=== PATIENT | male | born 1950 | race Caucasian/White ===

== ENCOUNTER 2019-04-04 06:06 | Inpatient (IN) ==
--- NOTE | 2019-03-04 11:51 | Anesthesiology Consultation ---
Date of Service March 04, 2019 Assessment & Plan (1) Encounter for pre-operative examination: Chart Review Chart Review: Acceptable Risk for Surgery and Patient seen in Pre Admission Testing Teaching & Discussion Instructed NPO after midnight before surgery, except medications with 15 cc of water. Medication instructions provided according to the PAT guidelines. History Surgery Operation Date: 04/04/19 07:00 Proposed Procedures p Left Reverse Shoulder Replacement - Vin Bearden DO Height/Weight Height: 6 ft Weight: 115 kg Allergies Allergy/AdvReac Type Severity Reaction Status Date / Time No Known Allergies Allergy Verified 02/26/19 10:32 Medications Home Medications Medication Instructions Recorded Confirmed Last Taken multivitamin 1 tab PO DAILY 02/26/19 02/26/19 Unknown Past Medical History Medical History Degenerative disc disease Obesity Osteoarthritis Exercise / Class Metabolic Activity II 4-5 Yardwork/Stairs/Walk up hill Past Surgical History Surgical History Fusion of spine LUMBAR H/O knee surgery RT History of appendectomy History of surgery on arm LEFT ELBOW History of tonsillectomy History of tooth extraction Past Anesthesia History No Hx of Anesthesia Complications and No Family Hx of Anesthesia Complications History of PONV No Hx of PONV and No Hx of Motion Sickness Social History Smoking Status: Never smoker Do You Dip or Chew Tobacco: No Hx Alcohol Use: Yes Alcohol type: beer and hard liquor alcohol intake frequency: a few times a month Hx Substance Use: No substance use type: does not use Review of Systems Pt denies any recent chest pain, shortness of breath, palpitations, cough, fever or URI. Physical Exam Vital Signs BP: 132/83 P: 57bpm SPO2: 97% RA T: 97.8 F R: 16 ENMT Mouth: no dental restorations, no chipped teeth and no loose teeth Thyromental Distance: > or= 3.5 Finger Breadths (3.5) Mallampati Class: III Missing three teeth total. 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 Respiratory normal respiratory effort Auscultation: lungs clear to auscultation bilaterally Cardiovascular Rate/Rhythm: regular rate and regular rhythm Heart Sounds: no murmur Extremities: no edema Testing Laboratory Results 03/04/19 12:04 03/04/19 12:04 03/04/19 03/04/19 12:04 12:04 PT 11.0 INR 1.1 APTT 26.2 Blood Type A Positive Antibody Screen NEGATIVE Electrocardiogram Date: 03/04/19 Findings: + SB @ (56) Chest X-Ray Date: 03/04/19 Findings: + NAD
--- NOTE | 2019-03-04 12:26 | XRay Report ---
XR chest Pre-admission PA/Lat CLINICAL HISTORY: 68 years-old Male presenting with preoperative assessment. TECHNIQUE: PA and lateral views of the chest were obtained. COMPARISON: None. FINDINGS: Atherosclerosis of the aortic arch. Cardiac silhouette top normal in size. Lungs and pleural spaces c lear. Degenerative changes of the thoracic spine. Upper abdomen normal. IMPRESSION: 1. No acute cardiopulmonary disease. Electronically signed by: Randolph Lui M.D. 03/04/2019 12:25 PM
[2019-03-04 12:43] LABS: Basophils # (auto) 0.04 K/uL (0-0.2); Basophils % (auto) 0.6 %; Eosinophils % (auto) 1.5 %; Hematocrit (blood only) 43.7 % (42-52); Hemoglobin 15.1 g/dL (14.0-18.0); Immature Granulocytes # (auto) 0.02 K/uL (0.00-0.02); Immature Granulocytes % (auto) 0.3 %; Lymphocytes % (auto) 33.6 %; Mean Corpuscular Hgb Conc 34.6 g/dL (32-36); Mean Corpuscular Volume 87.9 fL (80-100); Mean Platelet Volume 9.3 fL (7.4-10.4); Monocytes # (auto) 0.64 K/uL (0.11-0.59); Monocytes % (auto) 9.4 %; Neutrophils # (auto) 3.74 K/uL (1.4-6.5); Neutrophils % (auto) 54.6 %; Platelet Count 167 K/uL (130-400); RDW Coefficient of Variation 13.9 % (11.5-14.5); RDW Standard Deviation 44.7 fL (36.4-46.3); Red Blood Count 4.97 M/uL (4.7-6.1); White Blood Count 6.84 K/uL (4.8-10.8)
[2019-03-04 13:00] LABS: INR 1.1 (0.9-1.1); Partial Thromboplastin Time 26.2 Seconds (21.0-31.0)
[2019-03-04 15:19] LABS: BUN Creatinine Ratio 12.5 (10-20); Calcium 9.4 mg/dl (8.5-10.1); Creatinine Clr Calc Pharmacy 87.7 ml/min; Est GFR (African American) 82.8; Est GFR (Non-African American) 71.5; Potassium 4.5 mmol/L (3.5-5.1)
--- NOTE | 2019-04-02 07:48 | History & Physical Report ---
Date of Service April 02, 2019 Assessment & Plan (1) Rotator cuff arthropathy of left shoulder: We will proceed with a left reverse shoulder arthroplasty. Postoperatively he will be placed in a sling and kept overnight in the hospital for postoperative medical management. He plans to use outpatient physical therapy in the [facility] upon discharge. Present on Admission?: Yes History of Present Illness Chief Complaint: Rotator cuff arthropathy of the left shoulder Primary Care Provider: NO PCP Anirudh is a pleasant 68-year-old male who injured his shoulder over a year ago. He was lifting a large plantar with soil into the back of his truck and felt a pop and pain in his shoulder. MRI showed a full-thickness tear of the supraspinatus and subscapularis with severe arthritic changes. After failing conservative treatment, he has elected proceed with a left reverse shoulder arthroplasty. Allergies Allergy/AdvReac Type Severity Reaction Status Date / Time No Known Allergies Allergy Verified 02/26/19 10:32 Home Medications Home Medications Medication Instructions Recorded Confirmed Type multivitamin 1 tab PO DAILY 02/26/19 02/26/19 History Past Med/Surg History Medical History Degenerative disc disease Obesity Osteoarthritis Surgical History Fusion of spine LUMBAR H/O knee surgery RT History of appendectomy History of surgery on arm LEFT ELBOW History of tonsillectomy History of tooth extraction Social History Preferred Language: Syriac Communication Ability: Effective Transportation Job Titles Required: No Beliefs That Will Affect Care: None Current Living Situation: Spouse Other Information That Helps Us Care for You: No Feels Safe at Home: Yes Safety Concerns: Feels Safe At This Time Smoking Status: Never smoker Do You Dip or Chew Tobacco: No Second Hand Exposure: No Tobacco Cessation Education Requested by Patient: No Hx Alcohol Use: Yes Alcohol type: beer and hard liquor Hx Substance Use: No Review of Systems All systems reviewed & are unremarkable except as noted in HPI & below Physical Exam Constitutional: WD/WN, vitals as above Eyes: PERRL, conjunctivae normal, anicteric sclerae ENMT: external ear and nose normal, oropharynx normal Neck: trachea midline, no thyromegaly Respiratory: normal respiratory effort Cardiovascular: RRR, no murmur, no edema Gastrointestinal (Abdomen): normal bowel sounds, soft, nontender, no hepatosplenomegaly Musculoskeletal: Physical examination of the left shoulder reveals decreased range of motion and significant weakness. There is tenderness palpation along the anterior glenohumeral joint line. The right upper extremity is neurovascularly intact. Psychiatric: A+Ox3, euthymic affect Results & Data Diagnostic Findings Radiographs of the left shoulder show some signs of osteoarthritis with blunting of the greater tuberosity and some superior migration of the humeral head on the glenoid.
[~2019-04-04 06:06] MED LIST: ACETAMINOPHEN 500 MG TAB PO SCH; CEFAZOLIN 2000MG 2,000 MG/15 ML SYR IV SCH; FAMOTIDINE 20 MG TAB PO SCH; GABAPENTIN 300 MG CAP PO SCH; LR 15ML/HR IV SCH; LR 60ML/HR IV SCH; ROPIVACAINE 0.5% HCL/PF 150 MG, BUPIVACAINE 0.5% MPF 30 ML, EPINEPHrine 30MG/30ML (OR U... INSTIL SCH; TRANEXAMIC ACID 1,000 MG **IV Pre-op IV SCH
[2019-04-04] MEDS ORDERED: TRANEXAMIC ACID 1,000 MG **IV Intra-op IV SCH (06:30)
[2019-04-04] MEDS ORDERED: BUPIVACAINE 0.5 % 5 MG/1 ML PF 10ML VIAL ONE (06:33)
--- NOTE | 2019-04-04 06:58 | History & Physical Bridge Note ---
Date of Service April 04, 2019 History & Physical Bridge Note I have examined the patient, reviewed the History & Physical and in the interval since the performance of the History & Physical I have noted the following changes of clinical significance: no changes noted
[2019-04-04] MEDS ORDERED: ORTHO JOINT ANESTHETIC ONE (07:07)
[2019-04-04] MEDS ORDERED: DEXAMETHASONE SOD INJ 4 MG/ML VIAL ONE (07:11)
[2019-04-04] MEDS ORDERED: GLYCOPYRROLATE 0.2 MG/ML VIAL ONE (07:11)
[2019-04-04] MEDS ORDERED: PROPOFOL IV EMULSION 10 MG/ML 20 ML VIAL IV ONE (07:11)
[2019-04-04] MEDS ORDERED: SUCCINYLCHOLINE CHLORIDE 20 MG/ML 10 ML VIAL ONE (07:11)
[2019-04-04] MEDS ORDERED: ONDANSETRON INJ 2 MG/ML 2 ML VIAL ONE (07:11)
[2019-04-04] MEDS ORDERED: LIDOCAINE HCL 2% 2 ML VIAL/AMP(20MG/ML) INFIL ONE (07:11)
[2019-04-04] MEDS ORDERED: NEOSTIGMINE METHYLSULFATE 5 MG/5 ML SYR ONE (07:11)
[2019-04-04] MEDS ORDERED: ePHEDrine sulfate 50 MG/ML AMP ONE (07:11)
[2019-04-04] MEDS ORDERED: PHENYLEPHRINE HCL 10 MG/ML VIAL ONE (07:11)
[2019-04-04] MEDS ORDERED: fentaNYL citrate 100 MCG/2 ML VIAL ONE (07:12)
[2019-04-04] MEDS ORDERED: MIDAZOLAM HCL 1 MG/ML 2ML VIAL ONE (07:12)
[2019-04-04] MEDS ORDERED: KETOROLAC 30 MG/ML VIAL IV PRN (08:05)
[2019-04-04] MEDS ORDERED: LABETALOL HCL IV 5 MG/ML 20ML IV PRN (08:05)
[2019-04-04] MEDS ORDERED: ATROPINE SULFATE 0.1 MG/ML 10ML SYR IV PRN (08:05)
[2019-04-04] MEDS ORDERED: HYDROmorphone INJ 1 MG/ML SYRINGE IV PRN (08:05)
[2019-04-04] MEDS ORDERED: ONDANSETRON INJ 2 MG/ML 2 ML VIAL IV PRN ×2 (08:05→11:57)
--- NOTE | 2019-04-04 10:17 | Operative Report ---
Post Operative Report Pre & Post Diagnosis Operation Date: 04/04/19 08:30 Pre-Op Diagnosis: LEFT SHOULDER rotator cuff arthropathy Post-Op Diagnosis: LEFT SHOULDER rotator cuff arthropathy Procedure Operation Date: 04/04/19 08:30 Actual Procedures p Left Reverse Shoulder Replacement(Left) - Vin Bearden DO Surgeon Vin Bearden DO Landscaping Supervisor Vin Bell PAC Estimated Blood Loss 200 Findings Consistent with Post-Op Diagnosis Specimens Left humeral head Complications none Disposition Disposition: Recovery Room Indications Anirudh is a pleasant 68-year-old male who injured his left shoulder about a year ago. MRI showed a large rotator cuff tear and severe osteoarthritis. After failing conservative treatment, he elected to proceed with a left reverse shoulder arthroplasty. Description of Procedure Implants used: I used a [employer] Comprehensive reverse total shoulder arthroplasty system with a size 10 press fit mini humeral stem, a standard humeral tray and a standard humeral bearing, a standard baseplate with a 6.5 mm central screw and superior and inferior locking screws, and a size 41 mm eccentric glenosphere. The patient arrived at [facility] for the above procedure. There were seen in the preoperative holding area and the operative extremity was identified and signed. They were given a preoperative antibiotic and an interscalene nerve block. They were taken back to the operating room, laid on table in supine position, and put under general anesthesia. They were then put into the beachchair position. The shoulder was then prepped and draped in sterile fashion. A timeout was done and the patient in the operative extremity was properly identified. A deltopectoral approach was used. Dissection was taken down through the fascia and the deltoid was retracted laterally and the conjoined tendon was retracted medially. The anterior shoulder was exposed. The long head of the biceps tendon was tenodesed to the upper border of the pectoralis major. The subscapularis was then released off the lesser tuberosity with a centimeter of cuff tissue remaining. The inferior capsule was released and the humeral head was dislocated. A canal finding reamer was sent down the center of the humeral canal. Sequential reaming up to a size 10 reamer was done. Off that reamer, a proximal humeral resection guide was placed. The proximal humerus was resected at 135 of inclination and 25 of retroversion. Osteophytes were then removed and the glenoid was exposed. Time was spent doing a complete capsular and labral release. The glenoid guide was then placed in the inferior aspect of the glenoid. A 3.2 mm Steinmann pin was then placed into the glenoid vault at 10 of inclination. The glenoid baseplate was then reamed. The final size standard baseplate was th en impacted in the place. A 6.5 mm central screw was then placed followed by superior and inferior locking screws. A 41 mm eccentric glenoid sphere was then impacted into place. Surrounding soft tissues were then injected with 100 cc an orthopedic pain control cocktail. The proximal humerus was then exposed. Sequential broaching of the humerus up to a size 10 broach was done. Off that broach a standard humeral tray was trialed. The shoulder was then reduced, brought through a full range of motion and felt to be stable. The shoulder was then dislocated and the broach was removed. The final size 10 mini press-fit humeral stem was then impacted into place. A standard humeral bearing was then snapped onto a standard humeral tray and the ring-lock mechanism was engaged. The humeral tray was then impacted onto the humeral stem. The shoulder was once again reduced, brought through a full range of motion and felt to be stable. The subscapularis was then tenodesed back to the lesser tuberosity with transosseous FiberWire sutures and side to side sutures with the arm in 45 of external rotation. A dilute betadyne lavage was then done for 3 minutes. The joint was then irrigated with normal saline solution. Hemostasis was obtained. The skin was then closed with 2-0 Vicryl, 3-0V lock suture, and dory. A soft dressing and a regular arm sling was placed. The patient was then extubated and transferred to a hospital bed. They were taken to the postanesthesia care unit in stable condition. They tolerated the procedure well. I attest to the content of the Intraoperative Record and any orders documented therein. Any exceptions are noted below.
--- NOTE | 2019-04-04 11:12 | XRay Report ---
XR shoulder LT min 2V routine CLINICAL HISTORY: Post shoulder surgery COMPARISON: November 2018 DISCUSSION: There are postsurgical changes of a reverse total left shoulder arthroplasty. There are o verlying skin dory. There is air within the soft tissues consistent with recent surgery. There is no dislocation. IMPRESSION: Postsurgical changes of a reverse total left shoulder arthroplasty Electronically signed by: Osmar Johnston M.D. 04/04/2019 11:10 AM
--- NOTE | 2019-04-04 11:38 | Anesthesiology Progress Note ---
Date of Service April 04, 2019 Anesthesia Post Procedure Vital Signs Vital Signs: Temp Pulse Pulse Resp BP Pulse Ox 04/04/19 11:25 63 12 134/78 94 04/04/19 11:15 68 13 127/82 97 04/04/19 11:05 58 L 13 127/68 98 04/04/19 10:55 61 17 132/60 97 04/04/19 10:47 36.0 C L 75 17 130/63 95 04/04/19 06:31 36.4 C L 59 L 18 136/81 95 Pain Intensity Left Shoulder: Pain Intensity: 0 Transfer of Care Handoff Completed per policy Notes Mental Status: alert / awake / arousable Patient Amnestic to Procedure: Yes Nausea / Vomiting: adequately controlled Pain: adequately controlled Airway Patency, RR, SpO2: stable & adequate BP & HR: stable & adequate Hydration State: stable & adequate Anesthetic Complications: no major complications apparent
[2019-04-04] MEDS ORDERED: MAGNESIUM HYDROXIDE SUSP 30 ML UDC PO PRN (11:57)
[2019-04-04] MEDS ORDERED: HYDROmorphone INJ 0.5 MG/0.5 ML SYR IV PRN (11:57)
[2019-04-04] MEDS ORDERED: NALOXONE HCL 0.4 MG/1 ML VIAL/CARP IV PRN (11:57)
[2019-04-04] MEDS ORDERED: OXYCODONE HCL IR 5 MG TAB (IMMEDIATE RELEASE) PO PRN (11:57)
[2019-04-04] MEDS ORDERED: METOCLOPRAMIDE HCL INJ 5 MG/ML 2 ML VIAL IV PRN (11:57)
[2019-04-04] MEDS ORDERED: BISACODYL 10 MG SUPP PR PRN (11:57)
[2019-04-04] MEDS: SODIUM CHLORIDE 0.9% 1000ML 1,000 ML IV SCH ×2 (12:00→22:52)
[2019-04-04] MEDS: KETOROLAC 30 MG/ML VIAL IV SCH ×2 (13:34→20:57)
[2019-04-04] MEDS: ACETAMINOPHEN 500 MG TAB PO SCH ×2 (13:34→21:00)
[2019-04-04] MEDS: CEFAZOLIN 2000MG 2,000 MG/15 ML SYR IV SCH ×2 (16:12→23:29)
[2019-04-04] MEDS: DOCUSATE SODIUM 100 MG CAP PO SCH (20:58)
[2019-04-04] MEDS ORDERED: SENNA 8.6 MG TAB PO SCH (21:00)
[2019-04-05] MEDS: KETOROLAC 30 MG/ML VIAL IV SCH ×2 (02:29→08:16)
[2019-04-05 05:44] LABS: Basophils # (auto) 0.01 K/uL (0-0.2); Basophils % (auto) 0.1 %; Hematocrit (blood only) 40.1 % (42-52); Hemoglobin 13.5 g/dL (14.0-18.0); Immature Granulocytes # (auto) 0.03 K/uL (0.00-0.02); Immature Granulocytes % (auto) 0.2 %; Lymphocytes # (auto) 0.85 K/uL (1.2-3.4); Lymphocytes % (auto) 6.3 %; Mean Corpuscular Hgb Conc 33.7 g/dL (32-36); Mean Corpuscular Volume 89.1 fL (80-100); Mean Platelet Volume 9.7 fL (7.4-10.4); Monocytes # (auto) 0.99 K/uL (0.11-0.59); Monocytes % (auto) 7.3 %; Neutrophils # (auto) 11.62 K/uL (1.4-6.5); Neutrophils % (auto) 86.1 %; Platelet Count 150 K/uL (130-400); RDW Coefficient of Variation 13.4 % (11.5-14.5); RDW Standard Deviation 43.9 fL (36.4-46.3)
[2019-04-05 06:14] LABS: BUN Creatinine Ratio 14.7 (10-20); Calcium 8.6 mg/dl (8.5-10.1); Creatinine Clr Calc Pharmacy 88.6 ml/min; Est GFR (African American) 84.7; Est GFR (Non-African American) 73.1; Potassium 4.6 mmol/L (3.5-5.1)
[2019-04-05] MEDS: ACETAMINOPHEN 500 MG TAB PO SCH (06:19)
[2019-04-05] MEDS: DOCUSATE SODIUM 100 MG CAP PO SCH (08:16)
--- NOTE | 2019-04-05 08:43 | Orthopedic Progress Note ---
Date of Service April 05, 2019 Assessment & Plan (1) Rotator cuff arthropathy of left shoulder: Overall he is doing very well. Is not having any pain in the shoulder. He will be seen by physical therapy this morning for range of motion exercises. We will discharge him to home later this morning. He plans to get outpatient physical therapy. He will follow-up with orthopedics in 2 weeks. Present on Admission?: Yes Subjective Anirudh was seen and examined at bedside this morning. Overall is doing very well. Is not having any pain in the left shoulder. The nerve block is still working. He was able to get some sleep last night. He has no complaints. Physical Exam Musculoskeletal: On physical examination of the left shoulder, the dressing is clean and dry. He still is unable to extend his wrist or extend his thumb. He still has numbness in his left hand. The block is still working. He is wearing a sling as instructed. Results & Data Vital Signs (Past 12 Hours) Vital Signs Temp Pulse Pulse Resp BP Pulse Ox 04/05/19 07:06 36.8 C 71 18 146/89 H 92 04/05/19 02:36 36.4 C L 62 16 106/67 94 04/04/19 23:48 36.5 C 64 14 110/68 90 Laboratory Results H & H 03/04/19 04/05/19 Range/Units 12:04 05:21 Hgb 15.1 13.5 L (14.0-18.0) g/dL Hct 43.7 40.1 L (42-52) % Coagulation 03/04/19 Range/Units 12:04 INR 1.1 (0.9-1.1) Diagnostic Findings Postoperative x-rays of the left shoulder show the prosthesis to be in anatomic alignment without any evidence of fracture, dislocation, or loosening.
--- NOTE | 2019-04-05 08:45 | Discharge Summary ---
Date of Service April 05, 2019 Admission HPI Per Admitting Provider Anirudh is a pleasant 68-year-old male who injured his shoulder over a year ago. He was lifting a large plantar with soil into the back of his truck and felt a pop and pain in his shoulder. MRI showed a full-thickness tear of the supraspinatus and subscapularis with severe arthritic changes. After failing conservative treatment, he has elected proceed with a left reverse shoulder arthroplasty. Specialty Data Orthopedic H & H 03/04/19 04/05/19 Range/Units 12:04 05:21 Hgb 15.1 13.5 L (14.0-18.0) g/dL Hct 43.7 40.1 L (42-52) % Coagulation 03/04/19 Range/Units 12:04 INR 1.1 (0.9-1.1) Discharge Data Consultations 04/04/19 11:57 Consult Case Management - Discharge Planning Routine Procedures Performed Operation Date: 04/04/19 08:30 Actual Procedures p Left Reverse Shoulder Replacement(Left) - Vin Bearden DO Hospital Course (1) Rotator cuff arthropathy of left shoulder: On April 04, 2019 Anirudh arrived at [facility] and underwent a left reverse shoulder arthroplasty without complication. He had a general anesthetic and a left interscalene nerve block. Postoperatively he was placed in a sling and discharged to general orthopedic floors. His hospital course is uneventful. On postoperative day #1 his H&H was stable and his pain was well controlled. He was able to participate well with physical therapy doing range of motion exercises. He was then discharged home with the above instructions. He will follow-up with orthopedics in 2 weeks. He plans to use outpatient physical therapy. Discharge Instructions Home Medications Medication Instructions Recorded Confirmed multivitamin 1 tab PO DAILY 02/26/19 02/26/19 Previous Rx's Medication Instructions Recorded oxycodone 5 mg PO Q4H PRN #40 tab 04/05/19
[2019-04-05] MEDS ORDERED: MULTIVITAMIN TAB PO SCH ×2 (09:00)
--- NOTE | 2019-04-05 10:14 | Anesthesiology Progress Note ---
Date of Service April 05, 2019 Anesthesia Post Procedure Vital Signs Vital Signs: Temp Pulse Pulse Pulse Pulse Resp BP 04/05/19 09:02 36.8 C 64 73 71 18 146/89 H 04/05/19 07:06 36.8 C 71 18 146/89 H 04/05/19 02:36 36.4 C L 62 16 106/67 04/04/19 23:48 36.5 C 64 14 110/68 04/04/19 15:03 36.4 C L 73 16 130/84 04/04/19 13:58 36.6 C 70 18 130/81 04/04/19 13:01 36.6 C 58 L 18 130/80 04/04/19 12:23 36.4 C L 61 18 126/78 04/04/19 11:57 36.4 C L 65 16 112/73 04/04/19 11:45 67 16 132/70 04/04/19 11:35 36.2 C L 68 12 131/69 04/04/19 11:25 63 12 134/78 04/04/19 11:15 68 13 127/82 04/04/19 11:05 58 L 13 127/68 04/04/19 10:55 61 17 132/60 04/04/19 10:47 36.0 C L 75 17 130/63 Pulse Ox 04/05/19 09:02 92 04/05/19 07:06 92 04/05/19 02:36 94 04/04/19 23:48 90 04/04/19 15:03 97 04/04/19 13:58 96 04/04/19 13:01 98 04/04/19 12:23 96 04/04/19 11:57 94 04/04/19 11:45 98 04/04/19 11:35 96 04/04/19 11:25 94 04/04/19 11:15 97 04/04/19 11:05 98 04/04/19 10:55 97 04/04/19 10:47 95 Pain Intensity Left Shoulder: Pain Intensity: 0 Transfer of Care Handoff Completed per policy Notes Mental Status: alert / awake / arousable and participated in evaluation Patient Amnestic to Procedure: Yes Nausea / Vomiting: adequately controlled Pain: adequately controlled Airway Patency, RR, SpO2: stable & adequate BP & HR: stable & adequate Hydration State: stable & adequate Anesthetic Complications: no major complications apparent and Pt Satisfied with anesthetic care
== END 2019-04-05 12:09 | disposition home or self-care (01) | DRG 483 ==
LOC: ASU 06:06 → 3E 10:48